=== PATIENT | male | born 1960 | race American Indian/Alaskan Native ===

== ENCOUNTER 2016-09-12 06:22 | Day surgery (SDC) | payer MEDICARE, OTHER ==
[2016-09-12] MEDS ORDERED: WATER FOR IRRIG STERILE IR ONE (07:01)
[2016-09-12] MEDS ORDERED: DIPRIVAN 10 MG/ML IV ONE ×2 (07:27)
[2016-09-12] MEDS ORDERED: XYLOCAINE MPF 2% ONE (07:56)
[2016-09-12] MEDS ORDERED: NACL 0.9% 1000 ML 1,000 ML IV SCH (08:00)
[2016-09-12 08:57] VITALS: BP 119/69
--- NOTE | 2016-09-12 09:35 | Anesthesia Consultation ---
Anesthesia Consult and Med Hx Date of service: 09/12/16 - Airway Anesthetic Teeth Evaluation: Good ROM Head & Neck: Adequate Mental/Hyoid Distance: Inadequate Mallampati Class: Class III Intubation Access Assessment: Possibly Difficult - Pulmonary Exam CTA: Yes - Cardiac Exam Cardiac Exam: RRR - Pre-Operative Health Status ASA Pre-Surgery Classification: ASA2 Proposed Anesthetic Plan: MAC - Pulmonary Hx Sleep Apnea: Yes - Cardiovascular System Hx Hypertension: Yes - Gastrointestinal Hx Gastroesophageal Reflux Disease: Yes - Hematic Hx Anemia: No Hx Sickle Cell Disease: No - Other Systems Hx Alcohol Use: No Hx Substance Use: No Hx Cancer: No Hx Obesity: No
--- NOTE | 2016-09-12 09:35 | Anesthesia Day of Surgery ---
Anesthesia Day of Surgery - Day of Surgery Patient Examined: Yes Patient H&P Reviewed: Yes Patient is NPO: Yes Beta Blockers: Yes
--- NOTE | 2016-09-12 09:43 | Short Stay Summary ---
Short Stay Documentation - Allergies and Medications Current Medications: Allergies No Known Allergies Allergy (Verified 07/10/16 14:12) Home Medications Medication Instructions Recorded Confirmed Last Taken Type Cialis 20 mg PO PRN PRN 07/10/16 09/11/16 Unknown History Coreg 20 mg PO DAILY 07/10/16 09/11/16 09/11/16 History Felodipine 10 mg PO DAILY 07/10/16 09/11/16 09/11/16 History Lisinopril/Hydrochlorothiazide 1 tab PO DAILY 07/10/16 09/11/16 09/11/16 History Percocet 7.5/325 mg 1 tab PO PRN PRN 07/10/16 09/11/16 Unknown History Active Medications Sodium Chloride (Nacl 0.9% 1000 Ml) 1,000 mls @ 50 mls/hr IV DIRECT NICOL Last Admin: 09/12/16 07:46 Dose: 50 mls/hr - Brief post op/procedure progress note Date of procedure: 09/12/16 Pre-op diagnosis: Colon cancer screening Post-op diagnosis: same (1. Diverticulosis coli 2. Poor prep 3. internal hemorrhoid 4. Cecal polyp) Procedure: colonoscopy with biopsy Anesthesia: MAC Findings: as above Surgeon: CHANTEL WELLS Estimated blood loss: none Pathology: list (1. cecal polyp) Specimen disposition: to lab Condition: stable - Disposition Condition at discharge: Stable Disposition: DISCHARGED TO HOME OR SELFCARE Short Stay Discharge Plan Activity: no restrictions Weight Bearing Status: Full Weight Bearing Diet: regular Follow up with: PATRICK SANTOS JR, MD [Primary Care Provider] - 7 Days
--- NOTE | 2016-09-12 09:44 | Post Anesthesia Evaluation ---
- Post Anesthesia Evaluation Patient Participated: Yes Airway Patent: Yes Stable Respiratory Function: Yes Nausea/Vomiting: No Temp > 96.8F: Yes Pain Manageable: Yes Adequeate Hydration: Yes Anesthesia Complications: No Block Receding Appropriately: Not Applicable Patient on Ventilator: No
== END 2016-09-12 06:23 | disposition home or self-care (01) ==
LOC: GIO 06:22
PROVIDERS: ATTEND Internal Medicine Gastroenterology
DX: Z12.11 Encounter for screening for malignant neoplasm of colon (principal); D12.0 Benign neoplasm of cecum; K64.0 First degree hemorrhoids; K57.30 Diverticulosis of large intestine without perforation or abscess without bleeding; K21.9 Gastro-esophageal reflux disease without esophagitis; M10.9 Gout, unspecified; I10 Essential (primary) hypertension; G47.33 Obstructive sleep apnea (adult) (pediatric)
CPT/HCPCS: 45380; 88305; J2704; J7030